=== PATIENT | male | born 2000 | race Caucasian/White ===

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

== ENCOUNTER 2021-04-14 07:59 | Emergency (ER) | payer BC, OTHER ==
[~2021-04-14] VITALS: Ht 177.8 cm; Wt 61.4 kg
[2021-04-14 08:50] VITALS: BP 99/62
== END 2021-04-14 12:25 | disposition home or self-care (01) ==
LOC: ER 07:59
DX: S90.32XA Contusion of left foot, initial encounter (principal); X58.XXXA Exposure to other specified factors, initial encounter; Y93.89 Activity, other specified; Y92.89 Other specified places as the place of occurrence of the external cause; Y99.8 Other external cause status
CPT/HCPCS: 29515; 73630; 99283